=== PATIENT | female | born 1960 | race Caucasian/White ===

== ENCOUNTER 2017-05-19 15:18 | Outpatient (CLI) | payer MEDICARE ==
--- NOTE | 2017-05-22 13:16 | Mammography Report ---
DIGITAL SCREENING MAMMOGRAM: 05/19/2017 CLINICAL INDICATION: A 56-year-old with family history of breast cancer, history of bilateral benign biopsies, history of bilateral implants for screening. COMPARISON: 05/2016, 04/2015, 05/2014, 05/2013, 05/2012, 05/2011, 04/2010 TECHNIQUE: Routine CC and MLO projections were obtained of the breasts as well as bilateral implant displaced views. FINDINGS: The breasts demonstrate scattered fibroglandular densities bilaterally. Bilateral subglan dular saline implants are stable. Coarse and punctate, typically benign calcifications are present. No suspicious masses, clustered microcalcifications, or regions of architectural distortion are iden tified. IMPRESSION: BENIGN FINDINGS. RECOMMENDATION: Routine annual screening unless otherwise clinically indicated. BIRADS CATEGORY 2 - BENIGN FINDINGS. STANDARD QUALIFYING STATEMENTS 1. This examination was reviewed with the aid of Computer-Aided Detection (CAD). 2. A negative or benign imaging report should not delay biopsy if clinically suspicious findings are present. Consider surgical consultation if warranted. More than 5% of cancers are not identified by i maging. 3. Dense breasts may obscure an underlying neoplasm. JOB #: [id number] EXT JOB #:[id number]
== END 2017-05-19 15:19 | disposition home or self-care (01) ==
LOC: DI.N 15:18
PROVIDERS: ATTEND Internal Medicine
DX: Z12.31 Encounter for screening mammogram for malignant neoplasm of breast (principal); Z80.3 Family history of malignant neoplasm of breast; Z98.82 Breast implant status
CPT/HCPCS: 77067

== ENCOUNTER 2017-06-21 08:00 | Outpatient (CLI) | payer MEDICARE | END 2017-06-21 08:01 | disposition home or self-care (01) | LOC: LAB.R 08:00 | PROVIDERS: ATTEND Registered Nurse | DX: Z11.3 Encounter for screening for infections with a predominantly sexual mode of transmission (principal) | CPT/HCPCS: 87491; 87591 ==

== ENCOUNTER 2017-12-13 14:55 | Outpatient (CLI) | payer MEDICARE, MEDICAID ==
--- NOTE | 2017-12-13 18:22 | XRAY Report ---
CHEST TWO VIEWS: 12/13/2017 HISTORY: Short of breath. COMPARISON: 06/14/2014. FINDINGS: The heart is top normal in size. The lungs are clear. No pleural fluid or pneumothorax. Mild early age-related degenerative changes in the spine. IMPRESSION: CLEAR LUNGS. NO ACUTE FINDINGS OR SIGNIFICANT CHANGE SINCE 06/14/2014. TD: 12/13/2017 16:32
--- NOTE | 2017-12-13 18:24 | XRAY Report ---
PELVIS AND RIGHT HIP: 12/13/2017 HISTORY: Pain. TECHNIQUE: AP view of the pelvis and lateral view of the right hip. COMPARISON: 08/24/2011. FINDINGS: Compared to the prior study. Minor degenerative change of the hips is stable. No fracture, malalignment, bone destruction or superimposed acute findings. IMPRESSION: MILD DEGENERATIVE CHANGE OF THE HIPS, STABLE COMPARED WITH 08/24/2011. TD: 12/13/2017 16:35
== END 2017-12-13 14:56 | disposition home or self-care (01) ==
LOC: DI 14:55 → DI.N 14:56
PROVIDERS: ATTEND Internal Medicine
DX: M16.11 Unilateral primary osteoarthritis, right hip (principal); R06.00 Dyspnea, unspecified
CPT/HCPCS: 71046

== ENCOUNTER 2018-05-22 15:24 | Outpatient (CLI) | payer MEDICARE ==
--- NOTE | 2018-05-24 15:44 | Mammography Report ---
Reason: SCREENING MAMMO Procedure Date: 05/22/2018 Accession Number: [id number] / [id number] Procedure: MGN - Screening Mammo Dig w/Implants CPT Code: FULL RESULT: EXAM: Screening Mammo Dig w/Implants DATE: 05/22/2018 4:01 PM CLINICAL HISTORY: Routine screening. Family history breast cancer in mother in her 60s and in aunt age 50. TECHNIQUE: Bilateral CC and MLO views were obtained. COMPARISON: 05/19/2017 through 06/04/2014. FINDINGS: The breasts demonstrate heterogeneously dense fibroglandular parenchyma bilaterally. Bilateral breasts: There are intact prepectoral saline implants, stable in appearance. There are operative changes of prior bilateral mastopexy. There are no suspicious masses, calcifications or areas of distortion. IMPRESSION: Benign findings RECOMMENDATION: Routine annual screening unless otherwise clinically indicated. BI-RADS CATEGORY 2: Benign findings STANDARD QUALIFYING STATEMENTS: 1. This examination was reviewed with the aid of Computer-Aided Detection (CAD). 2. A negative or benign imaging report should not preclude biopsy if clinically suspicious findings are present. 3. Dense breasts may obscure an underlying neoplasm. 4. This examination was reviewed without the aid of 3D breast imaging (tomosynthesis).
== END 2018-05-22 15:25 | disposition home or self-care (01) ==
LOC: DI.N 15:24
PROVIDERS: ATTEND Internal Medicine
DX: Z12.31 Encounter for screening mammogram for malignant neoplasm of breast (principal); Z98.82 Breast implant status; Z80.3 Family history of malignant neoplasm of breast
CPT/HCPCS: 77067

== ENCOUNTER 2019-05-23 15:54 | Outpatient (CLI) | payer MEDICARE, MEDICAID ==
--- NOTE | 2019-05-24 13:01 | Mammography Report ---
Reason: screening mammo Procedure Date: 05/23/2019 Accession Number: [id number] / [id number] Procedure: MGN - Screening Mammo Dig w/Implants CPT Code: Final Report FULL RESULT: EXAM: Screening Mammo Dig w/Implants DATE: 05/23/2019 4:41 PM CLINICAL HISTORY: Routine screening. History of bilateral benign breast biopsies. Family history breast cancer mother age 60. TECHNIQUE: (B) - Bilateral CC and MLO views were obtained. COMPARISON: 05/22/2018 through 04/30/2015. PARENCHYMAL PATTERN: (A) - The breasts demonstrate scattered fibroglandular densities bilaterally. FINDINGS: Bilateral breasts: There are intact bilateral prepectoral saline implants. There are no suspicious masses, calcifications, or areas of distortion. IMPRESSION: Benign findings. BI-RADS category 2. RECOMMENDATION: (ANNUAL) - Recommend routine annual screening mammography. BI-RADS CATEGORY: (2) - Benign Findings. STANDARD QUALIFYING STATEMENTS: 1. This examination was not reviewed with the aid of Computer-Aided Detection (CAD). 2. A negative or benign imaging report should not preclude biopsy if clinically suspicious findings are present. 3. Dense breasts may obscure an underlying neoplasm. 4. This examination was reviewed without the aid of 3D breast imaging (tomosynthesis).
== END 2019-05-23 15:55 | disposition home or self-care (01) ==
LOC: DI.N 15:54
PROVIDERS: ATTEND Internal Medicine
DX: Z12.31 Encounter for screening mammogram for malignant neoplasm of breast (principal); Z80.3 Family history of malignant neoplasm of breast; Z98.82 Breast implant status
CPT/HCPCS: 77067

== ENCOUNTER 2020-06-22 12:22 | Outpatient (CLI) | payer MEDICARE ==
--- NOTE | 2020-07-06 13:47 | Mammography Report ---
BILATERAL DIGITAL DIAGNOSTIC MAMMOGRAM: 06/22/2020 CLINICAL: Occasional left breast pain. Comparison is made to exams dated: 05/23/2019 mammogram, 05/22/2018 mammogram, and 05/19/2017 mammog [facility]. There are scattered fibroglandular elements in both breasts. Bilateral breast implants are intact. No significant masses, calcifications, or other findings are seen in either breast. There has been no significant interval change. IMPRESSION: NEGATIVE There is no mammographic evidence of malignancy. A 1 year screening mammogram is recommended. This exam was interpreted at Station ID: [id number]. NOTE: For mammograms, a report in lay terms will be sent to the patient. Approximately 15% of breast malignancies will not be visualized mammographically. In the management of a palpable breast mass, a negative mammogram must not discourage biopsy of a clinically suspicious lesion. Electronically Signed By: Fernando Quinn acr/penrad:07/02/2020 09:31:59 ACR BI-RADS Category 1: Negative 3341F PARENCHYMAL PATTERN: (A) - The breast(s) demonstrate(s) scattered fibroglandular densities. BI-RADS CATEGORY: (1) - 1 RECOMMENDATION: (ANNUAL) - Recommend routine annual screening mammography. [id number] 1 year screening LATERALITY: (B)
== END 2020-06-22 12:23 | disposition home or self-care (01) ==
LOC: DI 12:22
PROVIDERS: ATTEND Obstetrics & Gynecology
DX: N64.4 Mastodynia (principal)

== ENCOUNTER 2021-03-09 08:10 | Outpatient (CLI) | payer MEDICARE | END 2021-03-09 08:11 | disposition home or self-care (01) | LOC: LAB.N 08:10 | PROVIDERS: ATTEND Psychiatry & Neurology Neuromuscular Medicine | DX: M62.838 Other muscle spasm (principal); Z53.9 Procedure and treatment not carried out, unspecified reason ==

== ENCOUNTER 2021-07-13 15:55 | Outpatient (CLI) | payer MEDICARE, MEDICAID ==
--- NOTE | 2021-07-14 13:57 | Mammography Report ---
BILATERAL DIGITAL SCREENING MAMMOGRAM 3D/2D WITH AUGMENTATION: 07/13/2021 CLINICAL: Family history of breast cancer. Routine screening. Comparison is made to exams dated: 06/22/2020 mammogram, 05/23/2019 mammogram, 05/22/2018 mammogram, 05/19/2017 mammogram, 05/17/2016 mammogram, and 04/30/2015 mammogram - [facility]. There are scattered fibroglandular elements in both breasts. Bilateral breast implants are intact. No significant masses, calcifications, or other findings are seen in either breast. There has been no significant interval change. IMPRESSION: NEGATIVE There is no mammographic evidence of malignancy. A 1 year screening mammogram is recommended. This exam was interpreted at Station ID: [id number]. NOTE: For mammograms, a report in lay terms will be sent to the patient. Approximately 15% of breast malignancies will not be visualized mammographically. In the management of a palpable breast mass, a negative mammogram must not discourage biopsy of a clinically suspicious lesion. Electronically Signed By: Fernando Quinn acr/penrad:07/13/2021 17:20:16 ACR BI-RADS Category 1: Negative 3341F PARENCHYMAL PATTERN: (A) - The breast(s) demonstrate(s) scattered fibroglandular densities. BI-RADS CATEGORY: (1) - 1 RECOMMENDATION: (ANNUAL) - Recommend routine annual screening mammography. [id number] 1 year screening LATERALITY: (B)
== END 2021-07-13 15:56 | disposition home or self-care (01) ==
LOC: DI.N 15:55
DX: Z12.31 Encounter for screening mammogram for malignant neoplasm of breast (principal); Z80.3 Family history of malignant neoplasm of breast; Z98.82 Breast implant status

== ENCOUNTER 2021-09-17 10:45 | Outpatient (CLI) | payer MEDICARE, MEDICAID ==
[2021-09-17 17:50] LABS: BASOPHILS # (AUTO) 0.1 10^3/uL (0.0-0.1); BASOPHILS % (AUTO) 0.8 %; EOSINOPHILS # (AUTO) 0.5 10^3/uL (0.0-0.7); HGB - HEMOGLOBIN 12.7 g/dL (12.0-16.0); LYMPHOCYTES # (AUTO) 2.6 10^3/uL (1.5-3.5); LYMPHOCYTES % (AUTO) 24.2 %; MEAN CORPUSCULAR HEMOGLOBIN 28.7 pg (27.0-31.0); MEAN CORPUSCULAR VOLUME 92.8 fL (81.0-99.0); MEAN PLATELET VOLUME 11.3 fL (7.9-10.8); MONOCYTES # (AUTO) 0.5 10^3/uL (0.0-1.0); MONOCYTES % (AUTO) 4.2 %; NEUTROPHILS # (AUTO) 6.9 10^3/uL (1.5-6.6); NEUTROPHILS % (AUTO) 65.2 %; PLT - PLATELET COUNT 316 10^3/uL (130-450); RED BLOOD COUNT 4.42 10^6/uL (4.20-5.40); WHITE BLOOD COUNT 10.6 x10^3/uL (4.8-10.8)
[2021-09-17 18:13] LABS: ALBUMIN 4.2 g/dL (3.2-5.5); ALBUMIN/GLOBULIN RATIO 1.2 (1.0-2.2); ALKALINE PHOSPHATASE 57 IU/L (42-121); ALT ALANINE AMINOTRANSFERASE 31 IU/L (10-60); AST ASPARTATE AMINOTRANSFERASE 30 IU/L (10-42); BILIRUBIN,TOTAL 0.6 mg/dL (0.2-1.0); BUN - BLOOD UREA NITROGEN 20 mg/dL (6-20); CALCIUM 9.3 mg/dL (8.5-10.3); CARBON DIOXIDE - CO2 24 mmol/L (21-32); CHLORIDE 102 mmol/L (101-111); CHOL/HDL RATIO 3.2 (<4.4); CHOLESTEROL 180 mg/dL; CREATININE 0.6 mg/dL (0.4-1.0); GFR - MDRD 102 (>89); GLUCOSE 154 mg/dL (70-100); HDL CHOLESTEROL 56 mg/dL; LDL CHOLESTEROL,CALCULATED 94 mg/dL; LDL CHOLESTEROL,DIRECT 106 mg/dL; LDL/HDL RATIO 1.7 (<4.4); POTASSIUM 4.4 mmol/L (3.5-5.0); SODIUM 137 mmol/L (135-145); TOTAL PROTEIN 7.6 g/dL (6.7-8.2); TRIGLYCERIDES 148 mg/dL; VLDL CHOLESTEROL 30 mg/dL
[2021-09-17 18:20] LABS: T4 (THYROXINE) 8.79 ug/dL (6.09-12.23)
[2021-09-17 18:26] LABS: THYROID STIMULATING HORMONE 1.84 uIU/mL (0.34-5.60)
[2021-09-17 18:34] LABS: CREATININE,URINE 153.1 mg/dL; MICROALBUM/CREATININE RATIO,UR 5.9 ug/mg (<30.0); MICROALBUMIN,URINE 0.9 mg/dL (0-300.0)
[2021-09-17 20:15] LABS: ESTIMATED AVERAGE GLUCOSE 143 mg/dL (70-100); HEMOGLOBIN A1c% 6.6 % (4.27-6.07)
== END 2021-09-17 10:46 | disposition home or self-care (01) ==
LOC: LAB.N 10:45
PROVIDERS: ATTEND Internal Medicine
DX: I10 Essential (primary) hypertension (principal); E11.65 Type 2 diabetes mellitus with hyperglycemia; Z79.899 Other long term (current) drug therapy; E78.5 Hyperlipidemia, unspecified; E03.9 Hypothyroidism, unspecified
CPT/HCPCS: 36415; 80053; 80061; 82043; 82570; 83036; 83721; 84436; 84443; 85025

== ENCOUNTER 2021-12-09 12:31 | Emergency (ER) | payer MEDICARE, MEDICAID ==
[2021-12-09 13:22] VITALS: BP 174/100
--- NOTE | 2021-12-09 13:43 | ED Physician Documentation ---
History of Present Illness - Stated complaint Stated Complaint: C+. COUGH, SOA, SORE THROAT - Chief complaint Chief Complaint: Resp - History obtained from History obtained from: Patient - History of Present Illness Timing: How many days ago (2) Pain level max: 0 Pain level now: 0 - Additonal information Additional information: Patient is a 61-year-old female who presents to the emergency department with 2 days of cough, congestion. Tested positive for COVID yesterday. Called her doctor's office and they sent her here so that we could evaluate her for possible Paxlovid use. No fevers. No chills. Nothing makes it better or worse. Also complains of bilateral ear pain. Review of Systems Nose: reports: Rhinorrhea / runny nose, Congestion GI: denies: Vomiting, Diarrhea Skin: denies: Rash Musculoskeletal: denies: Neck pain, Back pain Neurologic: denies: Headache PD PAST MEDICAL HISTORY - Past Medical History Past Medical History: Yes Cardiovascular: Hypertension, High cholesterol - Past Surgical History Past Surgical History: No - Allergies Allergies/Adverse Reactions: Allergies Allergy/AdvReac Type Severity Reaction Status Date / Time No Known Drug Allergies Allergy Verified 12/09/21 13:22 - Living Situation Living Situation: reports: With family Living Arrangement: reports: At home - Social History Does the pt have substance abuse?: No - Family History Family history: reports: Non contributory PD ED PE NORMAL - Vitals Vital signs reviewed: Yes - General General: Alert and oriented X 3, No acute distress - HEENT HEENT: Moist mucous membranes - Neck Neck: Supple, no meningeal sign - Cardiac Cardiac: RRR - Respiratory Respiratory: No respiratory distress, Clear bilaterally - Abdomen Abdomen: Soft, Non tender, Non distended - Derm Derm: Warm and dry - Neuro Neuro: Alert and oriented X 3 Results - Vitals Vitals: Vital Signs - 24 hr 12/09/21 13:18 Temperature 36.4 C L Heart Rate 105 H Respiratory 16 Rate Blood Pressure 174/100 H O2 Saturation 95 Oxygen O2 Source Room air PD MEDICAL DECISION MAKING - ED course Complexity details: considered differential, d/w patient ED course: Patient here requesting Paxlovid. She is well-appearing, nontoxic. Afebrile. There are some minor interactions with her medications. We will have her stop her statin. She will monitor her blood sugars at home as well. Patient counseled regarding signs and symptoms for which I believe and urgent re- evaluation would be necessary. Patient with good understanding of and agreement to plan and is comfortable going home at this time This document was made in part using voice recognition software. While efforts are made to proofread this document, sound alike and grammatical errors may occur. Departure - Departure Disposition: 01 Home, Self Care Clinical Impression: COVID-19 Condition: Good Instructions: ED Viral Syndrome Follow-Up: Rell Calvert MD [Primary Care Provider] - Within 1 week Comments: Please follow-up with your doctor within 1 week for repeat evaluation. Stop the atorvastatin while you are taking the Paxlovid. You should also try to minimize your use of clonazepam. It may lessen the efficacy of your Levothyroxine. Please also monitor your blood sugars as it can interfere with metformin. Return if you worsen Discharge Date/Time: 12/09/21 14:09
[2021-12-09] MEDS: NIRMATRELVIR/RITONAVIR PREPACK PO STA (13:52)
== END 2021-12-09 14:09 | disposition home or self-care (01) ==
LOC: ED 12:31
DX: U07.1 COVID-19 (principal)
CPT/HCPCS: 99282; J3490

== ENCOUNTER 2022-08-09 15:18 | Outpatient (CLI) | payer MEDICARE, MEDICAID ==
--- NOTE | 2022-08-10 11:27 | Mammography Report ---
BILATERAL DIGITAL SCREENING MAMMOGRAM 3D/2D WITH AUGMENTATION: 08/09/2022 CLINICAL: Family history of breast cancer. Routine screening. Comparison is made to exams dated: 07/13/2021 mammogram, 06/22/2020 mammogram, 05/23/2019 mammogram, 07/22/2017 mammogram, 05/19/2017 mammogram, and 05/17/2016 mammogram - [facility]. There are scattered areas of fibroglandular density in both breasts (category b / 25%-50% glandular t issue). Bilateral breast implants are intact. No significant masses, calcifications, or other findings are seen in either breast. There has been no significant interval change. IMPRESSION: NEGATIVE There is no mammographic evidence of malignancy. A 1 year screening mammogram is recommended. This exam was interpreted at Station ID: [id number]. NOTE: For mammograms, a report in lay terms will be sent to the patient. Approximately 15% of breast malignancies will not be visualized mammographically. In the management of a palpable breast mass, a negative mammogram must not discourage biopsy of a clinically suspicious lesion. Electronically Signed By: David Geller M.D. [email or web address]/[email or web address]:08/10/2022 08:18:50 ACR BI-RADS Category 1: Negative 3341F PARENCHYMAL PATTERN: (A) - The breast(s) demonstrate(s) scattered fibroglandular densities. BI-RADS CATEGORY: (1) - 1 RECOMMENDATION: (ANNUAL) - Recommend routine annual screening mammography. [id number] 1 year screening LATERALITY: (B)
== END 2022-08-09 15:19 | disposition home or self-care (01) ==
LOC: DI.N 15:18
PROVIDERS: ATTEND Internal Medicine
DX: Z12.31 Encounter for screening mammogram for malignant neoplasm of breast (principal); Z80.3 Family history of malignant neoplasm of breast

== ENCOUNTER 2023-02-07 13:38 | Emergency (ER) | payer MEDICARE, MEDICAID ==
[2023-02-07 13:49] VITALS: BP 151/84
== END 2023-02-07 13:57 | disposition left against medical advice (07) ==
LOC: ED 13:38
DX: Z53.21 Procedure and treatment not carried out due to patient leaving prior to being seen by health care provider (principal)

== ENCOUNTER 2023-03-09 16:13 | Outpatient (CLI) | payer MEDICARE, MEDICAID ==
[2023-03-09 20:30] LABS: BASOPHILS # (AUTO) 0.1 10^3/uL (0.0-0.1); BASOPHILS % (AUTO) 1.1 %; EOSINOPHILS # (AUTO) 0.3 10^3/uL (0.0-0.7); EOSINOPHILS % (AUTO) 3.9 %; HGB - HEMOGLOBIN 13.3 g/dL (12.0-16.0); LYMPHOCYTES % (AUTO) 24.8 %; MEAN CORPUSCULAR HEMOGLOBIN 29.1 pg (27.0-31.0); MEAN CORPUSCULAR HGB CONC 30.9 g/dL (32.0-36.0); MEAN CORPUSCULAR VOLUME 94.1 fL (81.0-99.0); MEAN PLATELET VOLUME 11.5 fL (7.9-10.8); MONOCYTES # (AUTO) 0.5 10^3/uL (0.0-1.0); MONOCYTES % (AUTO) 5.6 %; NEUTROPHILS # (AUTO) 5.2 10^3/uL (1.5-6.6); NEUTROPHILS % (AUTO) 64.2 %; PLT - PLATELET COUNT 326 10^3/uL (130-450); RED BLOOD COUNT 4.57 10^6/uL (4.20-5.40); RED CELL DISTRIBUTION WIDTH 13.6 % (12.0-15.0)
[2023-03-09 20:44] LABS: ALBUMIN 4.6 g/dL (3.2-5.5); ALBUMIN/GLOBULIN RATIO 1.6 (1.0-2.2); ALKALINE PHOSPHATASE 57 IU/L (42-121); ALT ALANINE AMINOTRANSFERASE 19 IU/L (10-60); AST ASPARTATE AMINOTRANSFERASE 15 IU/L (10-42); BILIRUBIN,TOTAL 0.6 mg/dL (0.2-1.0); BUN - BLOOD UREA NITROGEN 14 mg/dL (6-20); CALCIUM 9.9 mg/dL (8.5-10.3); CARBON DIOXIDE - CO2 27 mmol/L (21-32); CHLORIDE 103 mmol/L (101-111); CHOL/HDL RATIO 3.3 (<4.4); CHOLESTEROL 163 mg/dL; CREATININE 0.6 mg/dL (0.6-1.3); CRP - C-REACTIVE PROTEIN 0.8 mg/dL (<0.5); GFR - MDRD 101 (>89); GLUCOSE 130 mg/dL (74-104); HDL CHOLESTEROL 49 mg/dL; LDL CHOLESTEROL,CALCULATED 79 mg/dL; LDL/HDL RATIO 1.6 (<4.4); MAGNESIUM 1.8 mg/dL (1.7-2.3); POTASSIUM 4.4 mmol/L (3.5-4.5); SODIUM 139 mmol/L (135-145); TOTAL PROTEIN 7.5 g/dL (6.4-8.9); TRIGLYCERIDES 177 mg/dL (48-352); VLDL CHOLESTEROL 35 mg/dL
[2023-03-09 20:46] LABS: CREATININE,URINE 264.4 mg/dL; MICROALBUM/CREATININE RATIO,UR 13.2 ug/mg (<30.0); MICROALBUMIN,URINE 3.5 mg/dL
[2023-03-09 21:00] LABS: THYROID STIMULATING HORMONE 1.52 uIU/mL (0.34-5.60)
[2023-03-09 21:23] LABS: ESTIMATED AVERAGE GLUCOSE 128 mg/dL (70-100); HEMOGLOBIN A1c% 6.1 % (4.27-6.07)
[2023-03-10 07:38] LABS: BILIRUBIN,URINE NEGATIVE (NEGATIVE); GLUCOSE, URINE (UA) NEGATIVE (NEGATIVE); KETONES,URINE (UA) NEGATIVE (NEGATIVE); LEUKOCYTE ESTERASE, URINE NEGATIVE (NEGATIVE); NITRITE,URINE NEGATIVE (NEGATIVE); OCCULT BLOOD,URINE NEGATIVE (NEGATIVE); PH,URINE 5.5 PH (5.0-7.5); PROTEIN,URINE NEGATIVE (NEGATIVE); UROBILINOGEN,URINE 0.2 (NORMAL) E.U./dL (NORMAL)
[2023-03-10 08:10] LABS: CLARITY,URINE CLOUDY (CLEAR)
[2023-03-10 08:11] LABS: AMORPHOUS SEDIMENT,UR Marked /LPF; BACTERIA,URINE Few /HPF (None Seen); RBC,URINE 0-5 /HPF (0-5); SQUAMOUS EPITHELIAL CELL,UR FEW Squamous (<= Few); WBC,URINE 0-3 /HPF (0-5)
== END 2023-03-09 16:14 | disposition home or self-care (01) ==
LOC: LAB.N 16:13
PROVIDERS: ATTEND Internal Medicine
DX: I10 Essential (primary) hypertension (principal); E11.65 Type 2 diabetes mellitus with hyperglycemia; E78.5 Hyperlipidemia, unspecified; M17.0 Bilateral primary osteoarthritis of knee; Z79.899 Other long term (current) drug therapy; E03.9 Hypothyroidism, unspecified; R10.11 Right upper quadrant pain; C50.912 Malignant neoplasm of unspecified site of left female breast
CPT/HCPCS: 36415; 80053; 80061; 81001; 81003; 82043; 82570; 83036; 83721; 83735; 84443; 85025; 85651; 86140; 87086

== ENCOUNTER 2023-03-23 13:52 | Outpatient (CLI) | payer MEDICARE, MEDICAID ==
--- NOTE | 2023-03-23 15:56 | Ultrasound Report ---
PROCEDURE: Abdomen Complete INDICATIONS: UPPER QUADRANT PAIN TECHNIQUE: Real-time scanning was performed of the abdominal and retroperitoneal organs, with image documentatio n. COMPARISON: CT abdomen pelvis 06/30/2014. FINDINGS: Liver: Increased liver echogenicity, commonly hepatic steatosis. The liver is enlarged measuring 18. 7 cm. Gallbladder: There is a 5 mm gallbladder polyp seen at the fundus. No gallbladder wall thickening. No stones or sludge. Biliary ducts: Mild intra and extrahepatic biliary ductal dilatation. The common bile duct measures 9 mm. Normal is 6-7 mm or less in diameter, or 10 mm or less post-cholecystectomy. Pancreas: Visualized portions of the pancreas are sonographically normal. Spleen: Spleen is normal in size and homogeneous in echotexture. Kidneys: Kidneys are normal in size and echotexture. Right kidney measures 11.2 cm long; left kidne y measures 14.6 cm long. No hydronephrosis or nephrolithiasis. No solid masses. No complex renal cy stic lesions which require follow-up. Aorta: Visualized aorta is normal in caliber at less than 3 cm. Iliacs: Proximal common iliac arteries are normal in caliber at less than 2.5 cm. IVC: Intrahepatic inferior vena cava is patent. Miscellaneous: No free abdominal fluid. IMPRESSION: 1.Hepatic steatosis and hepatomegaly. 2.There is a 5 mm gallbladder polyp at the fundus. This is statistically benign and no follow-up is n ecessary. 3.Mild intra and extrahepatic biliary ductal dilatation. No stones are seen within the visualized com mon bile duct. Consider correlation with laboratory values for cholestasis. Reviewed by: Nik Lamb MD on 03/23/2023 3:54 PM PDT Approved by: Nik Lamb MD on 03/23/2023 3:54 PM PDT Station ID: [id number]
--- NOTE | 2023-03-23 16:04 | Ultrasound Report ---
PROCEDURE: Pelvic w/Transvaginal INDICATIONS: UPPER QUADRANT PAIN TECHNIQUE: Real-time scanning was performed of the pelvic organs, with image documentation. Additional endovagi nal scanning was necessary due to incomplete visualization of the adnexal and endometrial structures by transabdominal scanning. COMPARISON: None. FINDINGS: Uterus: Status post hysterectomy. Ovaries: The ovaries are not visualized, correlate with oophorectomy. No adnexal masses are seen. IMPRESSION: Status post hysterectomy and likely oophorectomy. No adnexal masses. No abnormalities are seen. Reviewed by: Nik Lamb MD on 03/23/2023 4:03 PM PDT Approved by: Nik Lamb MD on 03/23/2023 4:03 PM PDT Station ID: [id number]
== END 2023-03-23 13:53 | disposition home or self-care (01) ==
LOC: DI 13:52
PROVIDERS: ATTEND Internal Medicine
DX: K76.0 Fatty (change of) liver, not elsewhere classified (principal); R16.0 Hepatomegaly, not elsewhere classified; K82.4 Cholesterolosis of gallbladder; K83.8 Other specified diseases of biliary tract

== ENCOUNTER 2023-09-05 15:16 | Outpatient (CLI) | payer MEDICARE, MEDICAID ==
--- NOTE | 2023-09-07 09:39 | Mammography Report ---
BILATERAL DIGITAL SCREENING MAMMOGRAM 3D/2D WITH AUGMENTATION: 09/05/2023 CLINICAL: Routine screening. Family history of breast cancer. Comparison is made to exams dated: 08/09/2022 mammogram, 07/13/2021 mammogram, 06/22/2020 mammogram, mammogram, 05/22/2018 mammogram, and 05/19/2017 mammogram - [facility]. There are scattered areas of fibroglandular density in both breasts (category b / 25%-50% glandular t issue). Bilateral breast implants are stable. No significant masses, calcifications, or other findings are seen in either breast. There has been no significant interval change. IMPRESSION: NEGATIVE There is no mammographic evidence of malignancy. A 1 year screening mammogram is recommended. This exam was interpreted at Station ID: [id number]. NOTE: For mammograms, a report in lay terms will be sent to the patient. Approximately 15% of breast malignancies will not be visualized mammographically. In the management of a palpable breast mass, a negative mammogram must not discourage biopsy of a clinically suspicious lesion. Electronically Signed By: Mary michele/sacha:09/06/2023 15:05:18 letter sent: No_Letter ACR BI-RADS Category 1: Negative 3341F PARENCHYMAL PATTERN: (A) - The breast(s) demonstrate(s) scattered fibroglandular densities. BI-RADS CATEGORY: (1) - 1 Mammogram [id number] 1 year screening LATERALITY: (B)
== END 2023-09-05 15:17 | disposition home or self-care (01) ==
LOC: DI.N 15:16
PROVIDERS: ATTEND Internal Medicine
DX: Z12.31 Encounter for screening mammogram for malignant neoplasm of breast (principal); R92.323 Mammographic fibroglandular density, bilateral breasts; Z80.3 Family history of malignant neoplasm of breast

== ENCOUNTER 2023-09-05 16:02 | Outpatient (CLI) | payer MEDICARE, MEDICAID | END 2023-09-05 16:03 | disposition home or self-care (01) | LOC: LAB.N 16:02 | PROVIDERS: ATTEND Internal Medicine | DX: I10 Essential (primary) hypertension (principal); K76.0 Fatty (change of) liver, not elsewhere classified; E11.65 Type 2 diabetes mellitus with hyperglycemia; E78.5 Hyperlipidemia, unspecified; L71.9 Rosacea, unspecified; M79.7 Fibromyalgia; C50.912 Malignant neoplasm of unspecified site of left female breast; E03.9 Hypothyroidism, unspecified; Z79.899 Other long term (current) drug therapy ==

== ENCOUNTER 2023-09-18 17:37 | Outpatient (CLI) | payer MEDICARE, MEDICAID ==
[2023-09-18 21:14] LABS: BASOPHILS # (AUTO) 0.1 10^3/uL (0.0-0.1); BASOPHILS % (AUTO) 0.8 %; EOSINOPHILS # (AUTO) 0.4 10^3/uL (0.0-0.7); EOSINOPHILS % (AUTO) 3.7 %; HGB - HEMOGLOBIN 12.7 g/dL (12.0-16.0); LYMPHOCYTES % (AUTO) 29.9 %; MEAN CORPUSCULAR HEMOGLOBIN 29.8 pg (27.0-31.0); MEAN CORPUSCULAR HGB CONC 31.8 g/dL (32.0-36.0); MEAN CORPUSCULAR VOLUME 93.9 fL (81.0-99.0); MONOCYTES # (AUTO) 0.5 10^3/uL (0.0-1.0); MONOCYTES % (AUTO) 4.9 %; NEUTROPHILS % (AUTO) 60.3 %; PLT - PLATELET COUNT 316 10^3/uL (130-450); RED BLOOD COUNT 4.26 10^6/uL (4.20-5.40); RED CELL DISTRIBUTION WIDTH 13.4 % (12.0-15.0)
[2023-09-18 21:25] LABS: ALBUMIN 4.6 g/dL (3.2-5.5); ALBUMIN/GLOBULIN RATIO 1.6 (1.0-2.2); ALKALINE PHOSPHATASE 57 IU/L (42-121); ALT ALANINE AMINOTRANSFERASE 15 IU/L (10-60); AST ASPARTATE AMINOTRANSFERASE 12 IU/L (10-42); BILIRUBIN,TOTAL 0.4 mg/dL (0.2-1.0); BUN - BLOOD UREA NITROGEN 20 mg/dL (6-20); CALCIUM 10.1 mg/dL (8.5-10.3); CARBON DIOXIDE - CO2 28 mmol/L (21-32); CHLORIDE 101 mmol/L (101-111); CHOL/HDL RATIO 2.9 (<4.4); CHOLESTEROL 152 mg/dL; CREATININE 0.6 mg/dL (0.6-1.3); GFR - MDRD 101 (>89); GLUCOSE 121 mg/dL (74-104); HDL CHOLESTEROL 52 mg/dL; LDL CHOLESTEROL,CALCULATED 68 mg/dL; LDL/HDL RATIO 1.3 (<4.4); SODIUM 137 mmol/L (135-145); TOTAL PROTEIN 7.5 g/dL (6.4-8.9); TRIGLYCERIDES 158 mg/dL (48-352); VLDL CHOLESTEROL 32 mg/dL
[2023-09-18 21:37] LABS: THYROID STIMULATING HORMONE 1.98 uIU/mL (0.34-5.60)
[2023-09-18 22:08] LABS: CREATININE,URINE 127.3 mg/dL; MICROALBUM/CREATININE RATIO,UR 7.9 ug/mg (<30.0)
[2023-09-19 09:50] LABS: ESTIMATED AVERAGE GLUCOSE 120 mg/dL (70-100); HEMOGLOBIN A1c% 5.8 % (4.27-6.07)
== END 2023-09-18 17:38 | disposition home or self-care (01) ==
LOC: LAB.N 17:37
PROVIDERS: ATTEND Internal Medicine
DX: I10 Essential (primary) hypertension (principal); K76.0 Fatty (change of) liver, not elsewhere classified; E11.65 Type 2 diabetes mellitus with hyperglycemia; E78.5 Hyperlipidemia, unspecified; M79.7 Fibromyalgia; C50.912 Malignant neoplasm of unspecified site of left female breast; E03.9 Hypothyroidism, unspecified; Z79.899 Other long term (current) drug therapy; L71.9 Rosacea, unspecified
CPT/HCPCS: 36415; 80053; 80061; 82043; 82570; 83036; 83721; 84436; 84443; 85025; 85651

== ENCOUNTER 2023-09-18 18:23 | Outpatient (CLI) | payer MEDICARE, MEDICAID ==
--- NOTE | 2023-09-19 13:30 | Ultrasound Report ---
PROCEDURE: Abdomen Limited INDICATIONS: FATTY LIVER TECHNIQUE: Real-time focused scanning was performed of the abdomen, with image documentation. COMPARISONS: Ultrasound 03/23/2023. FINDINGS: Liver: Increased liver echogenicity, commonly mild hepatic steatosis. Gallbladder: Gallbladder polyp measuring 4 mm. No wall thickening. No stones. Biliary ducts: Intrahepatic bile ducts are non-dilated. Extrahepatic bile duct caliber measures 9 m m. Normal is 6-7 mm or less in diameter, or 10 mm or less post-cholecystectomy. Pancreas: Visualized portions of the pancreas are sonographically normal. Right kidney: Normal in size and echotexture. Right kidney measures 12.9 cm long. No hydronephrosis or nephrolithiasis. No solid masses. No complex renal cystic lesions which require follow-up. Aorta: Visualized aorta is normal in caliber at less than 3 cm. IVC: Intrahepatic inferior vena cava is patent. Miscellaneous: No free abdominal fluid. IMPRESSION: Hepatic steatosis. Correlate with LFTs, as elevated LFTs may indicate steatohepatitis. Common bile duct dilation. Correlate with bilirubin. If elevated, consider MRCP to exclude an obstruc ting process. Reviewed by: Moi Gardner MD on 09/19/2023 1:28 PM PDT Approved by: Moi Gardner MD on 09/19/2023 1:28 PM PDT Station ID: [id number]
== END 2023-09-18 18:24 | disposition home or self-care (01) ==
LOC: DI 18:23
PROVIDERS: ATTEND Internal Medicine
DX: K76.0 Fatty (change of) liver, not elsewhere classified (principal); E11.65 Type 2 diabetes mellitus with hyperglycemia; I10 Essential (primary) hypertension; E78.5 Hyperlipidemia, unspecified; L71.9 Rosacea, unspecified; M79.7 Fibromyalgia; C50.912 Malignant neoplasm of unspecified site of left female breast; E03.9 Hypothyroidism, unspecified; Z79.899 Other long term (current) drug therapy
CPT/HCPCS: 36415; 80053; 80061; 82043; 82570; 83036; 83721; 84436; 84443; 85025; 85651

== ENCOUNTER 2024-03-06 07:38 | Outpatient (CLI) | payer MEDICARE, MEDICAID ==
--- NOTE | 2024-03-07 08:28 | Mammography Report ---
BILATERAL DIGITAL DIAGNOSTIC MAMMOGRAM 3D/2D WITH AUGMENTATION: 03/06/2024 CLINICAL: Occasional pain in both breasts. Comparison is made to exams dated: 09/05/2023 mammogram, 08/09/2022 mammogram, 07/13/2021 mammogram, and 06/22/2020 mammogram - [facility]. There are scattered areas of fibroglandular density in both breasts (category b / 25%-50% glandular t issue). No significant masses, calcifications, or other findings are seen in either breast. Bilateral saline breast implants are intact. The left breast implant demonstrates mild creases and mi ld capsular calcification which is unchanged. Patient describes diffuse left breast. IMPRESSION: BENIGN There is no mammographic evidence of malignancy. Patient describes diffuse left breast pain. No mass or cyst seen. Breast implants are intact and unch anged. Patient expresses interest in having the breast implants removed. Exam findings were conveyed to the patient. Patient is advised to monitor for significant change. Cli nical follow-up as needed. A 1 year screening mammogram is recommended. This exam was interpreted at Station ID: [id number]. NOTE: For mammograms, a report in lay terms will be sent to the patient. Approximately 15% of breast malignancies will not be visualized mammographically. In the management of a palpable breast mass, a negative mammogram must not discourage biopsy of a clinically suspicious lesion. Electronically Signed By: Tna Santiago M.D. slc/:03/06/2024 08:57:39 letter sent: No_Letter ACR BI-RADS Category 2: Benign Finding(s) 3342F PARENCHYMAL PATTERN: (A) - The breast(s) demonstrate(s) scattered fibroglandular densities. BI-RADS CATEGORY: (2) - 2 RECOMMENDATION: (ANNUAL) - Recommend routine annual screening mammography. [id number] 1 year screening LATERALITY: (B)
== END 2024-03-06 07:39 | disposition home or self-care (01) ==
LOC: DI 07:38
PROVIDERS: ATTEND Nurse Practitioner
DX: N64.4 Mastodynia (principal); Z86.007 Personal history of in-situ neoplasm of skin; Z98.82 Breast implant status; R92.323 Mammographic fibroglandular density, bilateral breasts